=== PATIENT | female | born 1935 | race Caucasian/White ===

== ENCOUNTER 2016-05-01 12:13 | Emergency (ER) | payer MEDICARE, BC ==
[2016-05-01 12:13] VITALS: BMI 36.6
--- NOTE | 2016-05-01 12:16 | EDPRACDOC ---
ED Hip Problem HPI - General Information Stated Complaint: FALL,HIP PAIN Time Seen by Provider: 05/01/16 12:13 Information Source: Patient Mode of Arrival: Ambulance Home Medications: Home Medications Donepezil HCl [Aricept] 5 mg PO HS 10/02/14 Glimepiride [Amaryl] 2 mg PO DAILY 10/02/14 Levothyroxine Sodium [Synthroid] 75 mcg PO DAILY 10/02/14 Lisinopril [Zestril] 2.5 mg PO DAILY 10/02/14 Rosuvastatin Calcium [Crestor] 5 mg PO HS 10/02/14 Sertraline HCl [Zoloft] 50 mg PO DAILY 10/02/14 Benzonatate 100 mg PO TID PRN 09/02/15 Loperamide HCl [Imodium] 4 mg PO DIR PRN 09/02/15 Acetaminophen [Mapap] 1,000 tabs PO Q6H PRN 09/17/15 Bromfenac Sodium [Prolensa] 1 drop OS DAILY 09/17/15 Aripiprazole [Abilify] 5 mg PO HS 05/01/16 Cyanocobalamin (Vitamin B-12) [Vitamin B-12 (cyanocobalamin)] 1,000 mcg SL DAILY 05/01/16 Ergocalciferol (Vitamin D2) [Vitamin D] 50,000 units PO TUFR 05/01/16 Guaifenesin-Dextromethorphan [Robitussin Dm] 10 ml PO Q4H PRN 05/01/16 Lactobacillus Acidophilus/Pect [Acidophilus-Pectin Capsule] 1 cap PO .DAILY X 10D 05/01/16 Levofloxacin [Levaquin] 750 mg PO .DAILY X 10D 05/01/16 Nitrofurantoin [Macrobid] 100 mg PO BID #14 cap 05/01/16 Allergies/Adverse Reactions: Allergies Allergy/AdvReac Type Severity Reaction Status Date / Time alendronate sodium Allergy OSTEALGIA Verified 03/10/16 18:04 [From Fosamax] ezetimibe [From Vytorin] Allergy FATIGUE Verified 03/10/16 18:04 metformin Allergy INTOLERANT Verified 03/10/16 18:04 pravastatin [From Pravachol] Allergy FATIGUE Verified 03/10/16 18:04 simvastatin [From Vytorin] Allergy FATIGUE Verified 03/10/16 18:04 Sulfa (Sulfonamide Allergy Unknown Verified 03/10/16 18:04 Antibiotics) - History of Present Illness Onset: [employer] of [employer] HPI: Pt states she tripped and fell. C/o R hip pain. Denies LOC, vision changes, n/v , neck or back pain, abd pain, loss of control bowel or bladder, leg numbness or weakness. Hip Problem Location: Reports: Right, Hip Mechanism: Reports: Blunt Trauma Circumstances: Reports: Fall Relevant History: Reports: Arthritis Able to Bear Weight: Limited Pain Severity: Mild Associated Signs & Symptoms: Reports: None ED Past Medical History - History Reviewed Yes Nurses notes reviewed and agree except as marked - Patient Medical History Neurological History: Reports: Dementia Cardiac History: Reports: Hypertension, Hypercholesterolemia Respiratory History: Reports: Pneumonia (WALKING [place] 2013) GI/ History: Reports: Kidney Stones, Diverticulosis Musculoskeletal History: Reports: Arthritis Psychological History: Denies: Depression Systemic History: Reports: Anemia (PERNICIOUS), Diabetes, Hypothyroidism - Family Medical History Reports: Diabetes (FATHER). Denies: Hypertension, Cancer, Stroke, Cardiac Disorders - Social Medical History Smoking Status: Never smoker ETOH: None Substance Abuse: None EDM Review of Systems - Review of Systems Constitutional: No Symptoms Reported. negative: Fever, Chills, Weakness, Fatigue, Loss of Appetite Eyes: No Symptoms Reported. negative: Redness, Blurred Vision, Double Vision, Discharge, Pain, Light Sensitive, Photophobia Respiratory: No Symptoms Reported. negative: Cough, Brassy Cough, Barky Cough, Shortness of Breath, Wheezing, Hemoptysis Cardiovascular: No Symptoms Reported. negative: Chest Pain, Palpitations, Syncope, Edema, Orthopnea, PND, Skin Mottling, Cyanosis Gastrointestinal: No Symptoms Reported. negative: Pain, Constipation, Nausea, Vomiting, Diarrhea, Melena, Formula Intolerance Genitourinary: No Symptoms Reported. negative: Dysuria, Hematuria, Frequency, Discharge, Bleeding, Testicular Pain, Neurological: No Symptoms Reported. negative: Headache, Dizziness, Seizure, Numbness, Weakness, Speech Difficulty, Gait Difficulty Musculoskeletal: Hip Integumentary: No Symptoms Reported. negative: Itching, Rash, Bruising, Wound Allergic/Immunologic: No Symptoms Reported. negative: Hives, Itching Hematologic: No Symptoms Reported. negative: Lymphadenopathy, Easy Bruising, Easy Bleeding Psychiatric: No Symptoms Reported. negative: Anxiety, Depression, Hallucinations, Insomnia, Suicidal - Physical Exam Constitutional: Alert Oriented to: Time, Person, Place Last recorded Vital Signs: Oxygen Pulse Oxygen Saturation O2 Device Oxygen Flow Rate Fraction of Inspired Oxygen ( FIO2) - HEENT Head: Normal ( normocephalic) Eye Exam: Normal (PERRL, EOMI, Sclera white) Neck: Normal (FROM, trachea at midline) - Respiratory/Cardiovascular Respiratory: Normal - CTA (BBS clear to auscultation without adventitious sounds ) Cardiovascular: Normal (RRR without murmur, gallop or rub) - GI Auscultation: Normal (NABS) Palpation: Normal (Soft,No rebound or guarding, non distended) Tenderness: Non tender - Musculoskeletal Back: Normal (Non-Tender) Extremities: Normal (Normal tone, Pulses 2+ No cyanosis or edema, FROM) - Integumentary Skin: Normal, Warm, Dry Lymphatics: Normal (no adenopathy) - Neurologic Memory Impaired: Normal Motor Function: Normal. negative: Abnormal, Unable to Test, Other Mood Description: Normal Perception: Normal ED Hip Problem Physical Exam - Musculoskeletal Hip: Normal Hip Deformity: Normal Pelvis: Normal Thigh: Normal Back: Normal Distal Function/Circulation: Normal - Differential Diagnosis DJD arthritis, Contusion, Femur fracture, Hip fracture, Pelvis fracture, Sprain - Results Laboratory Results - last 24 hr 05/01/16 13:17 Urine Color Yellow Urine Clarity Cldy Urine pH 6.0 Ur Specific [place] 1.010 Urine Protein 1+ H Urine Glucose (UA) 2+ H Urine Ketones Neg Urine Occult Blood 2+ H Urine Nitrite Neg Urine Bilirubin Neg Urine Urobilinogen <2.0 Ur Leukocyte Esterase 2+ H Urine WBC Tntc H Urine WBC Clumps Present H Ur Epithelial Cells 2+ Urine Bacteria Few Hyaline Casts 10-20 H - Diagnostic Imaging Hip Image interpreted by: Radiologist IMPRESSION: No fracture or acute finding. Decision Time to Discharge: 13:43 - Departure Disposition: Home Condition: Good Final Diagnosis: Accidental fall Contusion of right hip Qualifiers: Encounter type: initial encounter Qualified Code(s): S70.01XA - Contusion of right hip, initial encounter UTI (urinary tract infection) Qualifiers: Urinary tract infection type: acute cystitis Hematuria presence: with hematuria Qualified Code(s): N30.01 - Acute cystitis with hematuria Instructions: Urinary Tract Infection in Women (ED), Dysuria, Hip Sprain (ED), RICE: Routine Care for Injuries Education/Counseling Given To: Patient Education/Counseling Given Regarding: Diagnosis, Treatment, Follow Up Referrals: Joe Obregon II, MD [Primary Care Provider] - One Week Prescriptions: Nitrofurantoin [Macrobid] 100 mg PO BID #14 cap Additional Instructions: Increase fluids. Return for worse or different symptoms.
[2016-05-01 12:51] VITALS: TEMP 97.7
--- NOTE | 2016-05-01 13:24 | DIRPT ---
CLINICAL DATA: UNKNOWN FALL AT NURSING FACILITY. PT STATES SHE DOENST HURTBUT NURSE SAYS SHE IS TENDER TO TOUCH. EXAM: RIGHT HIP (WITH PELVIS) 2-3 VIEWS COMPARISON: None. FINDINGS: No fracture dislocation. No bone lesion. Minor spurring from the inferior right femoral head. No other arthropathic change. Bony pelvis is intact. Soft tissues are unremarkable. IMPRESSION: No fracture or acute finding. Electronically Signed By: Shad Wen M.D. On: 05/01/2016 13:22
[2016-05-01 13:40] LABS: LEUKOCYTES/URINE 2+ (NEGATIVE); NITRITE/URINE NEG (NEGATIVE); URINE OCCULT BLOOD 2+ (NEG/TRACE); WBC/URINE TNTC (0-5)
[2016-05-01 15:00] VITALS: BP 148/78; PULSE 72
== END 2016-05-01 14:59 ==
LOC: ED 12:13
DX: S70.01XA Contusion of right hip, initial encounter (principal); N30.01 Acute cystitis with hematuria; W01.0XXA Fall on same level from slipping, tripping and stumbling without subsequent striking against object, initial encounter; Y93.9 Activity, unspecified
CPT/HCPCS: 73502; 81001; 99284

== ENCOUNTER 2016-05-05 23:08 | Emergency (ER) | payer MEDICARE, BC ==
[2016-05-05 23:09] VITALS: BMI 36.6
--- NOTE | 2016-05-05 23:16 | EDPRACDOC ---
- General Information Chief Complaint: Back Pain Stated Complaint: KIDNEY INFECTION SYMPTOMS Time Seen by Provider: 05/05/16 23:10 Home Medications: Home Medications Donepezil HCl [Aricept] 5 mg PO HS 10/02/14 Glimepiride [Amaryl] 2 mg PO DAILY 10/02/14 Levothyroxine Sodium [Synthroid] 75 mcg PO DAILY 10/02/14 Lisinopril [Zestril] 2.5 mg PO DAILY 10/02/14 Rosuvastatin Calcium [Crestor] 5 mg PO HS 10/02/14 Sertraline HCl [Zoloft] 50 mg PO DAILY 10/02/14 Benzonatate 100 mg PO TID PRN 09/02/15 Loperamide HCl [Imodium] 4 mg PO DIR PRN 09/02/15 Acetaminophen [Mapap] 1,000 tabs PO Q6H PRN 09/17/15 Bromfenac Sodium [Prolensa] 1 drop OS DAILY 09/17/15 Aripiprazole [Abilify] 5 mg PO HS 05/01/16 Cyanocobalamin (Vitamin B-12) [Vitamin B-12 (cyanocobalamin)] 1,000 mcg SL DAILY 05/01/16 Ergocalciferol (Vitamin D2) [Vitamin D] 50,000 units PO TUFR 05/01/16 Guaifenesin-Dextromethorphan [Robitussin Dm] 10 ml PO Q4H PRN 05/01/16 Lactobacillus Acidophilus/Pect [Acidophilus-Pectin Capsule] 1 cap PO .DAILY X 10D 05/01/16 Levofloxacin [Levaquin] 750 mg PO .DAILY X 10D 05/01/16 Nitrofurantoin [Macrobid] 100 mg PO BID #14 cap 05/01/16 Cephalexin Monohydrate [Keflex] 500 mg PO Q6H #20 cap 05/06/16 Allergies/Adverse Reactions: Allergies Allergy/AdvReac Type Severity Reaction Status Date / Time alendronate sodium Allergy OSTEALGIA Verified 03/10/16 18:04 [From Fosamax] ezetimibe [From Vytorin] Allergy FATIGUE Verified 03/10/16 18:04 metformin Allergy INTOLERANT Verified 03/10/16 18:04 pravastatin [From Pravachol] Allergy FATIGUE Verified 03/10/16 18:04 simvastatin [From Vytorin] Allergy FATIGUE Verified 03/10/16 18:04 Sulfa (Sulfonamide Allergy Unknown Verified 03/10/16 18:04 Antibiotics) - History of Present Illness Onset: 2 DAYS HPI: PT COMPLAINS OF LOWER BACK PAIN X 2 DAYS, ACHING AND SHARP, NO EXAC/AMEL FACTORS , EMS REPORTS ANAT STAFF STATED URINARY FREQUENCY, SLIPPED OUT OF CHAIR TONIGHT, HAS REDNESS TO RIGHT KNEE, PT DENIES COMPLAINTS OF KNEE PAIN. Pain Location: Reports: Bilateral, Lower, Lumbar Pain Radiates To: Reports: None Pain Caused By: Reports: Spontaneous Relevant History: Reports: UTI Pain Severity: Reports: Moderate Pain Quality: Reports: Aching, Sharp Worsened By: Denies: Breathing, O, Movement, Nothing, Twisting, Walking Associated Signs and Symptoms: Reports: None ED Past Medical History - History Reviewed Yes Nurses notes reviewed and agree except as marked - Patient Medical History Neurological History: Reports: Dementia Cardiac History: Reports: Hypertension, Hypercholesterolemia Respiratory History: Reports: Pneumonia (WALKING [id number]) GI/ History: Reports: Kidney Stones, Diverticulosis Musculoskeletal History: Reports: Arthritis Psychological History: Denies: Depression Systemic History: Reports: Cancer, Anemia (PERNICIOUS), Diabetes, Hypothyroidism - Family Medical History Reports: Diabetes (FATHER). Denies: Hypertension, Cancer, Stroke, Cardiac Disorders - Social Medical History Smoking Status: Never smoker Lives In: Assisted Living EDM Review of Systems - Review of Systems Constitutional: negative: Chills, Fever Eyes: negative: Blurred Vision, Double Vision Ears: negative: Drainage Throat: negative: Pain Nose: negative: Congestion, Discharge Respiratory: negative: Cough, Shortness of Breath, Wheezing Cardiovascular: negative: Chest Pain Gastrointestinal: negative: Diarrhea, Nausea, Pain, Vomiting Genitourinary: Frequency. negative: Dysuria Neurological: negative: Dizziness, Headache, Numbness, Weakness Musculoskeletal: Back Integumentary: No Symptoms Reported - Physical Exam Constitutional: Alert (Awake), No apparent distress Oriented to: Time, Person, Place Last recorded Vital Signs: Oxygen Pulse Oxygen Saturation O2 Device Oxygen Flow Rate Fraction of Inspired Oxygen ( FIO2) - HEENT Head: Normal ( normocephalic) Eye Exam: Normal (PERRL, EOMI, Sclera white) Oropharynx: Normal (Pharynx:Moist without exudate,Gums-no swelling) Tympanic Membrane: Normal ENT EAC: Normal TMJ: Normal Nose: No Symptoms Reported (septum midline) Neck: Normal (FROM, trachea at midline) - Respiratory/Cardiovascular Respiratory: Normal - CTA (BBS clear to auscultation without adventitious sounds ) Cardiovascular: Normal (RRR without murmur, gallop or rub) - GI Auscultation: Normal (NABS) Palpation: Normal (Soft,No rebound or guarding, non distended) Tenderness: Non tender Ho's Sign: Negative - Integumentary Skin: Normal, Warm, Dry Lymphatics: Normal (no adenopathy) - Neurologic Memory Impaired: Normal Motor Function: Normal (Normal tone, Pulses 2+ No cyanosis or edema, FROM) Cranial Nerve: Normal (CN II-X11 intact sensation, strength 5/5) Cerebellar: Normal Mood Description: Normal Perception: Normal ED Back Exam - Neurologic Motor Deficit: None - Musculoskeletal Cervical: Normal Thoracic: Normal Lumbar: Tender Midline: Tender Paraspinous: Tender Pelvis: Normal - Differential Diagnosis DJD, HNP, Musculoskeletal pain, Strain, Urinary tract infection - Results 05/06/16 00:46 Laboratory Results - last 24 hr 05/05/16 23:38 Urine Color Yellow Urine Clarity Sl hzy Urine pH 5.0 Ur Specific [place] 1.025 Urine Protein 1+ H Urine Glucose (UA) 4+ H Urine Ketones Neg Urine Occult Blood 1+ H Urine Nitrite Neg Urine Bilirubin Neg Urine Urobilinogen 0.2 Ur Leukocyte Esterase 2+ H Urine RBC 5-10 H Urine WBC 30-40 H Ur Epithelial Cells Occ Urine Bacteria Few Urine Mucus Sm amt - Diagnostic Imaging L-S SPINE Image interpreted by: Radiologist LUMBAR SPINE - COMPLETE 4+ VIEW COMPARISON: None. FINDINGS: Using the reference level of the last well-formed intervertebral disc as L5-S1, mild L1 compression fracture less than 25% height loss. Remaining lumbar vertebral bodies intact. Grade 1 L4-5. No pars articularis. Severe L5-S1 height loss, with endplate compatible with degenerative disc, moderate at L2-3 and L3-4. Mild L4-5 and L5-S1 facet arthropathy. No destructive bony lesions. Sacroiliac joints are symmetric. Mild vascular calcifications. IMPRESSION: Mild L1 compression fracture could be acute. Grade 1 L4-5 anterolisthesis without spondylolysis. LEFT KNEE Image interpreted by: Radiologist LEFT KNEE - COMPLETE 4+ VIEW COMPARISON: None. FINDINGS: There is no evidence of fracture or dislocation. There is mild joint space narrowing at the patellofemoral compartment, with cortical irregularity along the articular surface of the patella. A small knee joint effusion is noted. The visualized soft tissues are normal in appearance. IMPRESSION: 1. No evidence of fracture or dislocation. 2. Mild osteoarthritis noted. 3. Small knee joint effusion seen. Decision Time to Discharge: 00:48 - Departure Disposition: Home Condition: Stable Final Diagnosis: UTI (urinary tract infection) Qualifiers: Urinary tract infection type: acute cystitis Hematuria presence: without hematuria Qualified Code(s): N30.00 - Acute cystitis without hematuria Compression fracture of L1 lumbar vertebra Qualifiers: Encounter type: initial encounter Fracture type: closed Qualified Code(s): S32.010A - Wedge compression fracture of first lumbar vertebra, initial encounter for closed fracture Instructions: Urinary Tract Infection in Women (ED) Education/Counseling Given To: Patient, Other ([facility] STAFF) Referrals: Joe Obregon II, MD [Primary Care Provider] - One Week Prescriptions: Cephalexin Monohydrate [Keflex] 500 mg PO Q6H #20 cap Additional Instructions: CONTINUE YOUR USUAL MEDICATIONS BEFORE, RETURN TO THE ED FOR ANY WORSENING SYMPTOMS OR CONCERNS.
[2016-05-05 23:19] VITALS: TEMP 97.6
[2016-05-06 00:19] LABS: WBC/URINE 30-40 (0-5)
[2016-05-06 00:25] LABS: LEUKOCYTES/URINE 2+ (NEGATIVE); NITRITE/URINE NEG (NEGATIVE); URINE OCCULT BLOOD 1+ (NEG/TRACE)
--- NOTE | 2016-05-06 00:38 | DIRPT ---
CLINICAL DATA: Status post fall, landing on left knee. Left knee pain. Initial encounter. EXAM: LEFT KNEE - COMPLETE 4+ VIEW COMPARISON: None. FINDINGS: There is no evidence of fracture or dislocation. There is mild joint space narrowing at the patellofemoral compartment, with cortical irregularity along the articular surface of the patella. A small knee joint effusion is noted. The visualized soft tissues are normal in appearance. IMPRESSION: 1. No evidence of fracture or dislocation. 2. Mild osteoarthritis noted. 3. Small knee joint effusion seen. Electronically Signed By: Vance Ordonez M.D. On: 05/06/2016 00:35
--- NOTE | 2016-05-06 00:40 | DIRPT ---
CLINICAL DATA: Low back pain and frequent urination. Fell and landed on LEFT knee. EXAM: LUMBAR SPINE - COMPLETE 4+ VIEW COMPARISON: None. FINDINGS: Using the reference level of the last well-formed intervertebral disc as L5-S1, mild L1 compression fracture less than 25% height loss. Remaining lumbar vertebral bodies intact. Grade 1 L4-5. No pars articularis. Severe L5-S1 height loss, with endplate compatible with degenerative disc, moderate at L2-3 and L3-4. Mild L4-5 and L5-S1 facet arthropathy. No destructive bony lesions. Sacroiliac joints are symmetric. Mild vascular calcifications. IMPRESSION: Mild L1 compression fracture could be acute. Grade 1 L4-5 anterolisthesis without spondylolysis. Electronically Signed By: Ivone Dougherty M.D. On: 05/06/2016 00:37
[2016-05-06] MEDS ORDERED: CEPHALEXIN 500 MG CAP PO ONE (00:50)
[2016-05-06 01:45] VITALS: BP 168/77; PULSE 71
== END 2016-05-06 01:30 | disposition home or self-care (01) ==
LOC: ED 23:08
DX: N30.00 Acute cystitis without hematuria (principal)
CPT/HCPCS: 72110; 73564; 81001; 99283; A9270; J3490

== ENCOUNTER 2016-05-14 22:46 | Emergency (ER) | payer MEDICARE, BC ==
[2016-05-14 22:46] VITALS: BMI 36.6
--- NOTE | 2016-05-14 22:53 | EDPRACDOC ---
- General Information Stated Complaint: BLACK TOES Time Seen by Provider: 05/14/16 22:48 Information Source: Handle Finisher Mode of Arrival: Ambulance Home Medications: Home Medications Donepezil HCl [Aricept] 5 mg PO HS 10/02/14 Glimepiride [Amaryl] 2 mg PO DAILY 10/02/14 Levothyroxine Sodium [Synthroid] 75 mcg PO DAILY 10/02/14 Lisinopril [Zestril] 2.5 mg PO DAILY 10/02/14 Rosuvastatin Calcium [Crestor] 5 mg PO HS 10/02/14 Sertraline HCl [Zoloft] 50 mg PO DAILY 10/02/14 Benzonatate 100 mg PO TID PRN 09/02/15 Loperamide HCl [Imodium] 4 mg PO DIR PRN 09/02/15 Acetaminophen [Mapap] 1,000 tabs PO Q6H PRN 09/17/15 Bromfenac Sodium [Prolensa] 1 drop OS DAILY 09/17/15 Aripiprazole [Abilify] 5 mg PO HS 05/01/16 Cyanocobalamin (Vitamin B-12) [Vitamin B-12 (cyanocobalamin)] 1,000 mcg SL DAILY 05/01/16 Ergocalciferol (Vitamin D2) [Vitamin D] 50,000 units PO TUFR 05/01/16 Guaifenesin-Dextromethorphan [Robitussin Dm] 10 ml PO Q4H PRN 05/01/16 Lactobacillus Acidophilus/Pect [Acidophilus-Pectin Capsule] 1 cap PO .DAILY X 10D 05/01/16 Levofloxacin [Levaquin] 750 mg PO .DAILY X 10D 05/01/16 Nitrofurantoin [Macrobid] 100 mg PO BID #14 cap 05/01/16 Cephalexin Monohydrate [Keflex] 500 mg PO Q6H #20 cap 05/06/16 Allergies/Adverse Reactions: Allergies Allergy/AdvReac Type Severity Reaction Status Date / Time alendronate sodium Allergy OSTEALGIA Verified 03/10/16 18:04 [From Fosamax] ezetimibe [From Vytorin] Allergy FATIGUE Verified 03/10/16 18:04 metformin Allergy INTOLERANT Verified 03/10/16 18:04 pravastatin [From Pravachol] Allergy FATIGUE Verified 03/10/16 18:04 simvastatin [From Vytorin] Allergy FATIGUE Verified 03/10/16 18:04 Sulfa (Sulfonamide Allergy Unknown Verified 03/10/16 18:04 Antibiotics) - History of Present Illness Onset: FEW DAYS HPI: PT IS A RESIDENT OF [facility]. THE NURSES HAVE NOTICED "BLACK TOES" FOR THE PAST FEW DAYS. THEY HAVE DONE XRAYS THERE WHICH HAVE SHOWN NO FX AND NO OSTEOMYELITIS. PT HAS NO PAIN. THE [facility] CALLED EMS TONIGHT TO BRING PT HERE FOR EVAL. PT HAS DEMENTIA AND IS UNABLE TO GIVE ANY HX. Foot Problem Location: Reports: Bilateral Mechanism: Reports: None Circumstances: Reports: Unknown ED Past Medical History - Patient Medical History Neurological History: Reports: Dementia Cardiac History: Reports: Hypertension, Hypercholesterolemia Respiratory History: Reports: Pneumonia (WALKING [facility]2013) GI/ History: Reports: Kidney Stones, Diverticulosis Musculoskeletal History: Reports: Arthritis Psychological History: Denies: Depression Systemic History: Reports: Cancer, Anemia (PERNICIOUS), Diabetes, Hypothyroidism Surgical History: Reports: Other (PT UNABLE TO SAY) - Family Medical History Reports: Diabetes (FATHER). Denies: Hypertension, Cancer, Stroke, Cardiac Disorders - Social Medical History Smoking Status: Never smoker ETOH: None Substance Abuse: None Lives In: [facility]ention Facility EDM Review of Systems - Review of Systems ROS Negative Except as Marked: Yes All systems reviewed and were negative except as marked - Physical Exam Constitutional: Alert (Awake), No apparent distress Oriented to: Person Last recorded Vital Signs: Oxygen Pulse Oxygen Saturation O2 Device Oxygen Flow Rate Fraction of Inspired Oxygen ( FIO2) - HEENT Head: Normal ( normocephalic) Eye Exam: Normal (PERRL, EOMI, Sclera white) Oropharynx: Normal (Pharynx:Moist without exudate,Gums-no swelling) ENT EAC: Normal TMJ: Normal Nose: No Symptoms Reported (septum midline) Neck: Normal (FROM, trachea at midline) - Respiratory/Cardiovascular Respiratory: Normal - CTA (BBS clear to auscultation without adventitious sounds ) Cardiovascular: Normal (RRR without murmur, gallop or rub) - GI Auscultation: Normal (NABS) Palpation: Normal (Soft,No rebound or guarding, non distended) Tenderness: Non tender Ho's Sign: Negative - Musculoskeletal Back: Normal Extremities: Pedal Pulse, Other (BILATERAL GREAT TOE HEMATOMA. GOOD PERIPHERAL PULSES. GOOD CAP REFILL.) - Integumentary Skin: Normal, Warm, Dry Lymphatics: Normal (no adenopathy) - Additional Information PT REFERRED TO THE WOUND CARE CLINIC TO FOLLOW TOES. APPROPRIATELY FITTING FOOT WEAR RECOMMENDED. Decision Time to Discharge: 22:55 - Departure Yes I personally saw and evaluated the patient. Disposition: Home Condition: Fair Final Diagnosis: BILATERAL GREAT TOE HEMATOMAS Instructions: Hematoma (ED) Education/Counseling Given To: Patient Education/Counseling Given Regarding: Diagnosis, Treatment, Follow Up Referrals: Joe Obregon II, MD [Primary Care Provider] - One Week Prescriptions: No Action Rosuvastatin Calcium [Crestor] 5 mg PO HS Sertraline HCl [Zoloft] 50 mg PO DAILY Lisinopril [Zestril] 2.5 mg PO DAILY Glimepiride [Amaryl] 2 mg PO DAILY Levothyroxine Sodium [Synthroid] 75 mcg PO DAILY Donepezil HCl [Aricept] 5 mg PO HS Benzonatate 100 mg PO TID PRN PRN Reason: Cough Loperamide HCl [Imodium] 4 mg PO DIR PRN PRN Reason: Diarrhea Bromfenac Sodium [Prolensa] 1 drop OS DAILY Acetaminophen [Mapap] 1,000 tabs PO Q6H PRN PRN Reason: Pain Guaifenesin-Dextromethorphan [Robitussin Dm] 10 ml PO Q4H PRN PRN Reason: Cough Ergocalciferol (Vitamin D2) [Vitamin D] 50,000 units PO TUFR Cyanocobalamin (Vitamin B-12) [Vitamin B-12 (cyanocobalamin)] 1,000 mcg SL DAILY Levofloxacin [Levaquin] 750 mg PO .DAILY X 10D Aripiprazole [Abilify] 5 mg PO HS Lactobacillus Acidophilus/Pect [Acidophilus-Pectin Capsule] 1 cap PO .DAILY X 10D Nitrofurantoin [Macrobid] 100 mg PO BID #14 cap Cephalexin Monohydrate [Keflex] 500 mg PO Q6H #20 cap Additional Instructions: F/U WITH THE WOUND CARE CLINIC. APPROPRIATE FITTING FOOT WEAR.
[2016-05-14 22:55] VITALS: TEMP 98.2
[2016-05-14 23:44] VITALS: BP 145/77; PULSE 72
== END 2016-05-14 23:40 ==
LOC: ED 22:46
DX: S90.112A Contusion of left great toe without damage to nail, initial encounter (principal); S90.111A Contusion of right great toe without damage to nail, initial encounter; X58.XXXA Exposure to other specified factors, initial encounter; F03.90 Unspecified dementia, unspecified severity, without behavioral disturbance, psychotic disturbance, mood disturbance, and anxiety; I10 Essential (primary) hypertension; E78.00 Pure hypercholesterolemia, unspecified; E11.9 Type 2 diabetes mellitus without complications; E03.9 Hypothyroidism, unspecified; Z79.899 Other long term (current) drug therapy
CPT/HCPCS: 99283

== ENCOUNTER 2016-05-19 23:35 | Emergency (ER) | payer MEDICARE, BC ==
[2016-05-19 23:39] VITALS: BMI 36.6
[2016-05-19] MEDS ORDERED: NS 1,000 ML IV ONE (23:53)
--- NOTE | 2016-05-19 23:55 | EDPRACDOC ---
- General Information Stated Complaint: AMS/FEVER Time Seen by Provider: 05/19/16 23:54 Information Source: [employer] Mode of Arrival: Ambulance Home Medications: Home Medications Donepezil HCl [Aricept] 5 mg PO HS 10/02/14 Glimepiride [Amaryl] 2 mg PO DAILY 10/02/14 Levothyroxine Sodium [Synthroid] 75 mcg PO DAILY 10/02/14 Lisinopril [Zestril] 2.5 mg PO DAILY 10/02/14 Rosuvastatin Calcium [Crestor] 5 mg PO HS 10/02/14 Sertraline HCl [Zoloft] 50 mg PO DAILY 10/02/14 Benzonatate 100 mg PO TID PRN 09/02/15 Loperamide HCl [Imodium] 4 mg PO DIR PRN 09/02/15 Acetaminophen [Mapap] 1,000 tabs PO Q6H PRN 09/17/15 Bromfenac Sodium [Prolensa] 1 drop OS DAILY 09/17/15 Aripiprazole [Abilify] 5 mg PO HS 05/01/16 Cyanocobalamin (Vitamin B-12) [Vitamin B-12 (cyanocobalamin)] 1,000 mcg SL DAILY 05/01/16 Ergocalciferol (Vitamin D2) [Vitamin D] 50,000 units PO TUFR 05/01/16 Guaifenesin-Dextromethorphan [Robitussin Dm] 10 ml PO Q4H PRN 05/01/16 Lactobacillus Acidophilus/Pect [Acidophilus-Pectin Capsule] 1 cap PO .DAILY X 10D 05/01/16 Levofloxacin [Levaquin] 750 mg PO .DAILY X 10D 05/01/16 Nitrofurantoin [Macrobid] 100 mg PO BID #14 cap 05/01/16 Cephalexin Monohydrate [Keflex] 500 mg PO Q6H #20 cap 05/06/16 Cefdinir [Omnicef] 300 mg PO BID #20 cap 05/20/16 Allergies/Adverse Reactions: Allergies Allergy/AdvReac Type Severity Reaction Status Date / Time alendronate sodium Allergy OSTEALGIA Verified 03/10/16 18:04 [From Fosamax] ezetimibe [From Vytorin] Allergy FATIGUE Verified 03/10/16 18:04 metformin Allergy INTOLERANT Verified 03/10/16 18:04 pravastatin [From Pravachol] Allergy FATIGUE Verified 03/10/16 18:04 simvastatin [From Vytorin] Allergy FATIGUE Verified 03/10/16 18:04 Sulfa (Sulfonamide Allergy Unknown Verified 03/10/16 18:04 Antibiotics) - History of Present Illness Onset: today HPI: snf Pt with h/o dementia, DM presents with AMS, inc confusion and fever tonight. Pt denies any pain, is not a reliable historian, level 5 caveat applies Relevant History: Reports: Chronic Illness, Diabetes Symptoms: Reports: Confusion. Denies: Cough, Abdominal Pain, Vomiting ED Past Medical History - History Reviewed Yes Nurses notes reviewed and agree except as marked - Patient Medical History Neurological History: Reports: Dementia Cardiac History: Reports: Hypertension, Hypercholesterolemia Respiratory History: Reports: Pneumonia ([id number]) GI/ History: Reports: Kidney Stones, Diverticulosis Musculoskeletal History: Reports: Arthritis Psychological History: Denies: Depression Systemic History: Reports: Cancer, Anemia (PERNICIOUS), Diabetes, Hypothyroidism Surgical History: Reports: Other (PT UNABLE TO SAY) - Family Medical History Reports: Diabetes (FATHER). Denies: Hypertension, Cancer, Stroke, Cardiac Disorders - Social Medical History Smoking Status: Never smoker EDM Review of Systems - Review of Systems ROS Unobtainable: Yes ROS cannot be obtained due to patient's medical condition , Yes Hx Limited due to age/level of understanding of patient - Physical Exam Constitutional: Alert (Awake), Confused Oriented to: Person Last recorded Vital Signs: Oxygen Pulse Oxygen Saturation O2 Device Oxygen Flow Rate Fraction of Inspired Oxygen ( FIO2) - HEENT Head: Normal ( normocephalic) Eye Exam: Normal (PERRL, EOMI, Sclera white) Oropharynx: Membranes Dry Neck: Normal (FROM, trachea at midline). 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) - Integumentary Skin: Normal, Warm, Dry - Neurologic Motor Function: Normal (Normal tone, Pulses 2+ No cyanosis or edema, FROM) Cranial Nerve: Normal (CN II-X11 intact sensation, strength 5/5) - Re-evaluation Re-evaluation 2 Re-evaluation Time: 02:12 (RA pulse ox adequate no resp distress or complaints.plan d/c bck to facility Rx Abx) - Results 05/19/16 23:40 05/19/16 23:40 - EKG EKG #1 EKG Time: 23:48 -: Yes EKG interpreted by me Rate: bpm: 72 [place]: Normal Rhythm: NSR Block: None Hypertrophy: None ST: Nonsp - Diagnostic Imaging Chest Image interpreted by: Radiologist EXAM: PORTABLE CHEST 1 VIEW COMPARISON: 03/10/2016 FINDINGS: Cardiomediastinal contours are unchanged with stable heart size. Retrocardiac hiatal hernia is less well-defined currently. Ill-defined left basilar opacity. Pulmonary vasculature is normal. No pneumothorax. No acute osseous abnormalities are seen. IMPRESSION: Ill-defined left basilar opacity, likely atelectasis, however not well defined secondary to soft tissue attenuation from body habitus and overlying monitoring devices. Small pleural effusion or pneumonia could have a similar appearance on portable exam. Electronically Signed By: Razia Robbins M.D. On: 05/20/2016 00:18 Decision Time to Discharge: 02:13 - Departure Yes I personally saw and evaluated the patient. Disposition: [facility] Condition: Stable Final Diagnosis: UTI (urinary tract infection) Instructions: Urinary Tract Infection in Women (ED), Dysuria Education/Counseling Given To: Patient, Family Member Education/Counseling Given Regarding: Diagnosis, Treatment, Follow Up Referrals: None,No Provider [Primary Care Provider] - One Week Prescriptions: New Cefdinir [Omnicef] 300 mg PO BID #20 cap No Action Rosuvastatin Calcium [Crestor] 5 mg PO HS Sertraline HCl [Zoloft] 50 mg PO DAILY Lisinopril [Zestril] 2.5 mg PO DAILY Glimepiride [Amaryl] 2 mg PO DAILY Levothyroxine Sodium [Synthroid] 75 mcg PO DAILY Donepezil HCl [Aricept] 5 mg PO HS Benzonatate 100 mg PO TID PRN PRN Reason: Cough Loperamide HCl [Imodium] 4 mg PO DIR PRN PRN Reason: Diarrhea Bromfenac Sodium [Prolensa] 1 drop OS DAILY Acetaminophen [Mapap] 1,000 tabs PO Q6H PRN PRN Reason: Pain Guaifenesin-Dextromethorphan [Robitussin Dm] 10 ml PO Q4H PRN PRN Reason: Cough Ergocalciferol (Vitamin D2) [Vitamin D] 50,000 units PO TUFR Cyanocobalamin (Vitamin B-12) [Vitamin B-12 (cyanocobalamin)] 1,000 mcg SL DAILY Levofloxacin [Levaquin] 750 mg PO .DAILY X 10D Aripiprazole [Abilify] 5 mg PO HS Lactobacillus Acidophilus/Pect [Acidophilus-Pectin Capsule] 1 cap PO .DAILY X 10D Nitrofurantoin [Macrobid] 100 mg PO BID #14 cap Cephalexin Monohydrate [Keflex] 500 mg PO Q6H #20 cap - Physician Consulted Hospitalist Time Called: 00:55 (d/w Dr Dunaway, recs OK for treatment at facility. plan re- eval pulse ox and VS. family updated bedside. )
[2016-05-20] MEDS ORDERED: ACETAMINOPHEN 650 MG SUPP PR ONE
[2016-05-20] MEDS ORDERED: NS 1,000 ML IV ONE (00:01)
[2016-05-20 00:07] LABS: AUTOMATED BASOPHIL 0.4 % (0-2); AUTOMATED EOSINOPHIL 2.2 % (0-5); AUTOMATED LYMPH 13.1 % (17-44); AUTOMATED MONOCYTE 9.3 % (3-10); MPV 8.6 fL (7.4-10.4)
[2016-05-20 00:09] LABS: VENOUS BEb 3.2 (+/- 2); VENOUS TCO2 29.2 MMOL/L (23-27)
[2016-05-20 00:16] LABS: PT-INR 1.1
[2016-05-20 00:21] LABS: BLOOD UREA NITROGEN 19 MG/DL (7-17); CALC CORRECTED 9.4 MG/DL (8.4-10.2); CALCIUM 9.3 MG/DL (8.4-10.2); CALCULATED OSMOLALITY 273 MOs/Kg (270-290); CHLORIDE 101 mEq/L (98-107); GLUCOSE 130 mg/dL (70-99); SODIUM LEVEL 140 mEq/L (137-146)
--- NOTE | 2016-05-20 00:21 | DIRPT ---
CLINICAL DATA: Fever and altered mental status. EXAM: PORTABLE CHEST 1 VIEW COMPARISON: 03/10/2016 FINDINGS: Cardiomediastinal contours are unchanged with stable heart size. Retrocardiac hiatal hernia is less well-defined currently. Ill-defined left basilar opacity. Pulmonary vasculature is normal. No pneumothorax. No acute osseous abnormalities are seen. IMPRESSION: Ill-defined left basilar opacity, likely atelectasis, however not well defined secondary to soft tissue attenuation from body habitus and overlying monitoring devices. Small pleural effusion or pneumonia could have a similar appearance on portable exam. Electronically Signed By: Razia Robbins M.D. On: 05/20/2016 00:18
[2016-05-20 00:25] LABS: LEUKOCYTES/URINE 2+ (NEGATIVE); NITRITE/URINE NEG (NEGATIVE); URINE OCCULT BLOOD 1+ (NEG/TRACE)
[2016-05-20 00:26] LABS: WBC/URINE 30-40 (0-5)
[2016-05-20] MEDS ORDERED: PIPERACILLIN AND TAZOBACTAM 3.375 GM in D5W 100 ML IV ONE (00:44)
[2016-05-20 01:35] VITALS: TEMP 97.7
[2016-05-20 04:19] VITALS: BP 137/72; PULSE 71
== END 2016-05-20 04:09 | disposition home or self-care (01) ==
LOC: ED 23:35
DX: N39.0 Urinary tract infection, site not specified (principal)
CPT/HCPCS: 36415; 71010; 80053; 81001; 82803; 83605; 83690; 83880; 85025; 85610; 87040; 87086; 87804; 93005; 96361; 96365; 96366; 99284; A9270; J2543; J3370; J7060; J3490